=== PATIENT | female | born 1990 | race Caucasian/White ===

== ENCOUNTER 2017-10-01 09:27 | Outpatient (CLI) | payer OTHER ==
--- NOTE | 2017-10-01 11:09 | Ultrasound Report ---
ULTRASOUND OF LEFT BREAST: 10/01/2017 CLINICAL INDICATION: Palpable abnormality lateral left breast. TECHNIQUE: Real-time scanning was performed with c s s representative static images obtained. FINDINGS: Ultrasound of the palpable abnormality identified by the patient was performed. At this site, there is an 1.1 x 0.9 x 0.6 cm lymph node. No sonographically suspicious findings are identified. IMPRESSION: INTRAMAMMARY LYMPH NODE, CORRELATING WITH THE PALPABLE ABNORMALITY. RECOMMENDATION: ROUTINE ANNUAL SCREENING, TO COMMENCE AT AGE 42, UNLESS OTHERWISE CLINICALLY INDICATED. BIRADS CATEGORY 2-BENIGN FINDINGS. TD: 10/01/2017 11:08
== END 2017-10-01 09:28 | disposition home or self-care (01) ==
LOC: DI 09:27
PROVIDERS: ATTEND Physician Assistant Medical
DX: N63.20 Unspecified lump in the left breast, unspecified quadrant (principal)
CPT/HCPCS: 76642